=== PATIENT | male | born 1945 | race Caucasian/White ===

== ENCOUNTER 2016-10-19 16:29 | Emergency (ER) | payer MEDICARE, OTHER ==
[2016-10-19] MEDS ORDERED: DUONEB 0.5-3 MG/3 ml Neb IH ONE ×4 (16:38→17:30)
[2016-10-19] MEDS ORDERED: solu-MEDROL 125 MG IV ONE (16:38)
--- NOTE | 2016-10-19 16:44 | ERPHSYRPT ---
- History of Present Illness Time Seen by Provider: 10/19/16 16:35 Source: patient Exam Limitations: no limitations Physician History: 70 y/o male with history of HTN and COPD comes to the ER with a 3 day history of shortness of breath, wheezing, cough and congestion. Pt was just seen by his PCP and was supposed to start on ATBs and steroids but never filled the script. Pt has been using inhalers and neb treatments with no relief. Pt arrives in mild respiratory distress and an O2 sat of 92% on RA. Pt denies any fever, chills, chest pain, palpitations, palpitations, nausea, vomiting or diarrhea. Timing/Duration: day(s) Activities at Onset: none Severity of Dyspnea-Max: moderate Severity of Dyspnea-Current: moderate Possible Cause: occasional episodes Associated Symptoms: productive cough International travel in last 2 weeks: No Allergies/Adverse Reactions: Penicillins Allergy (Verified 10/19/16 16:42) Home Medications: Allopurinol 300 mg [Zyloprim 300 mg] 300 mg PO DAILY 10/06/15 [History] Aspirin [Aspirin EC] 81 mg PO DAILY 10/06/15 [History] Fluoxetine HCl 40 mg PO BID 10/06/15 [History] Furosemide 40 mg PO BID 10/06/15 [History] Metoprolol Tartrate 100 mg PO BID 10/06/15 [History] Spironolactone 25 mg [Aldactone 25 MG] 25 mg PO DAILY 10/06/15 [History] Tamsulosin HCl 0.4 mg [Flomax 0.4 MG] 0.4 mg PO DAILY 10/06/15 [History] Hx Tetanus, Diphtheria Vaccination/Date Given: No Hx Influenza Vaccination/Date Given: Yes Hx Pneumococcal Vaccination/Date Given: Yes - Review of Systems Constitutional: No Fever, No Chills Eyes: No Symptoms Ears, Nose, & Throat: No Symptoms Respiratory: Cough, Dyspnea, Dyspnea on Exertion (PIPER), Wheezing Cardiac: No Chest Pain, No Edema, No Syncope Abdominal/Gastrointestinal: No Abdominal Pain, No Nausea, No Vomiting, No Diarrhea Genitourinary Symptoms: No Dysuria Musculoskeletal: No Back Pain, No Neck Pain Skin: No Rash Neurological: No Dizziness, No Focal Weakness, No Sensory Changes Psychological: No Symptoms Endocrine: No Symptoms All Other Systems: Reviewed and Negative - Past Medical History Pertinent Past Medical History: Yes Neurological History: No Pertinent History ENT History: No Pertinent History Cardiac History: Congestive Heart Failure, Hypertension Respiratory History: No Pertinent History Endocrine Medical History: No Pertinent History Musculoskeletal History: Arthritis GI Medical History: No Pertinent History History: No Pertinent History Psycho-Social History: No Pertinent History Male Reproductive Disorders: No Pertinent History Other Medical History: IRON DEFICIENCY ANEMIA - Past Surgical History Past Surgical History: Yes Neuro Surgical History: No Pertinent History Cardiac: No Pertinent History Respiratory: No Pertinent History Gastrointestinal: No Pertinent History Genitourinary: No Pertinent History Musculoskeletal: No Pertinent History Male Surgical History: No Pertinent History Other Surgical History: RIGHT LOWER LEG TENDON REPAIR - DENTAL EXTRACTIONS - Social History Smoking Status: Never smoker Exposure to second hand smoke: No Drug Use: none - Nursing Vital Signs Nursing Vital Signs: Initial Vital Signs Pulse Rate 76 Respiratory Rate 28 Blood Pressure [Right Arm] 141/78 Pain Intensity 0 - Physical Exam General Appearance: mild distress, alert Eye Exam: PERRL/EOMI Neck Exam: normal inspection, supple Respiratory Exam: respiratory distress, wheezing Cardiovascular/Chest Exam: normal heart sounds, regular rate/rhythm Abdominal/Gastrointestinal Exam: soft, No tenderness, No distention, No mass Extremity Exam: non-tender, normal range of motion, normal inspection, no calf tenderness, no pedal edema Neurologic Exam: alert, oriented x 3, cooperative, cook helper pastry II-XII nml as tested, sensation nml, No motor deficits Skin Exam: normal color, warm, No dry - Course Nursing assessment & vital signs reviewed: Yes EKG Interpreted by Me: RATE, Sinus Rhythm, NORMAL AXIS (hr 76), NORMAL INTERVALS Ordered Tests: Active Orders 24 hr Category Date Time Status Eyewear Manufacturing Tech STAT Care 10/19/16 16:39 Active EKG-ER Only STAT Care 10/19/16 16:38 Active IV Insertion STAT Care 10/19/16 16:38 Active CBC W DIFF Stat Lab 10/19/16 16:39 Stop Req CMP Stat Lab 10/19/16 16:39 Stop Req TROPONIN Stat Lab 10/19/16 15:00 Completed Respiratory Nebulizer STAT RT 10/19/16 16:38 Completed Respiratory Nebulizer STAT RT 10/19/16 17:23 Ordered Medication Summary Discontinued Medications Generic Name Dose Route Start Last Admin Trade Name Freq PRN Reason Stop Dose Admin Albuterol/Ipratropium 3 ml 10/19/16 16:38 10/19/16 16:42 Duoneb 0.5-3 Mg/3 Ml Neb IH 10/19/16 16:39 3 ml STAT ONE Administration Albuterol/Ipratropium Confirm 10/19/16 16:38 Duoneb 0.5-3 Mg/3 Ml Neb Administered 10/19/16 16:39 Dose 3 ml IH .STK-MED ONE Methylprednisolone Sodium Succinate 125 mg 10/19/16 16:38 10/19/16 17:00 Solu-Medrol 125 Mg IV 10/19/16 16:39 125 mg STAT ONE Administration Methylprednisolone Sodium Succinate Confirm 10/19/16 17:00 Solu-Medrol 125 Mg Administered 10/19/16 17:01 Dose 125 mg .ROUTE .STK-MED ONE Lab/Rad Data: Laboratory Results 10/19/16 Range/Units 15:00 Troponin I 0.018 (0.000-0.056) ng/ml - Progress Progress: improved Air Movement: good Progress Note: 10/19/16 17:23 Pt feels better after receiving 2 duonebs. The CXR does not show any infiltrate. The labs are within normal limits. Repeat O2 sat is 94% on RA. Pt will be d/c home and was advised to fill the scripts of ATBs and steroids that were prescribed by his PCP 10/19/16 17:24 - Departure Time of Disposition: 17:25 Departure Disposition: Home Clinical Impression: COPD (chronic obstructive pulmonary disease) Condition: Stable Critical Care Time: Yes Critical Care Time(excluding separately billable procedures): 75-104 minutes Referrals: LUCIO BALL MD [Primary Care Provider] - Instructions: Chronic Obstructive Pulmonary Disease Additional Instructions: Return to the ER if you should have worsening shortness of breath, wheezing, chest congestion, cough, fever or chills. Start the antibiotics and steroids right away that were prescribed to you by your primary care doctor.
[2016-10-19] MEDS ORDERED: solu-MEDROL 125 MG ONE (17:00)
[2016-10-19 17:52] VITALS: BP 146/70; PULSE 76; O2SAT 93
== END 2016-10-19 17:51 | disposition home or self-care (01) ==
LOC: ED 16:29
DX: J44.9 Chronic obstructive pulmonary disease, unspecified (principal); R06.02 Shortness of breath; R06.2 Wheezing; R05 Cough; I50.9 Heart failure, unspecified; I10 Essential (primary) hypertension; D50.9 Iron deficiency anemia, unspecified
CPT/HCPCS: 36000; 36415; 84484; 93005; 93041; 94640; 96374; 99283; J2930

== ENCOUNTER 2017-11-07 08:58 | Inpatient (IN) | payer MEDICARE, OTHER ==
--- NOTE | 2017-11-07 09:08 | ERPHSYRPT ---
- History of Present Illness Time Seen by Provider: 11/07/17 09:00 Source: patient, EMS Exam Limitations: no limitations Physician History: The patient is a 71-year-old morbidly obese male brought in by ambulance from home where he complains of worsening cough and shortness of breath for several days. He states that he has been "fighting bronchitis for quite some time". 3 days ago he saw a doctor who gave him a steroid shot, steroid pills, and an antibiotic. He said last night he couldn't sleep lying flat or even in a chair. At one point several days ago his cough was productive but it no longer is. Several days ago he had a low-grade fever and not anymore. He received Solu-Medrol, Zofran, and a DuoNeb treatment in the ambulance. His past medical history significant for CHF, breathing problems, hypertension, gout, and prostate problems. Timing/Duration: day(s) (few) Activities at Onset: none Severity of Dyspnea-Max: moderate Severity of Dyspnea-Current: moderate Possible Cause: occasional episodes Modifying Factors: Improves With: coughing Associated Symptoms: cough, ankle swelling, productive cough Allergies/Adverse Reactions: Penicillins Allergy (Verified 10/19/16 16:42) Home Medications: Allopurinol 300 mg [Zyloprim 300 mg] 300 mg PO DAILY 10/06/15 [History] Aspirin [Aspirin EC] 81 mg PO DAILY 10/06/15 [History] Fluoxetine HCl 40 mg PO BID 10/06/15 [History] Furosemide 40 mg PO BID 10/06/15 [History] Metoprolol Tartrate 100 mg PO BID 10/06/15 [History] Spironolactone 25 mg [Aldactone 25 MG] 25 mg PO DAILY 10/06/15 [History] Tamsulosin HCl 0.4 mg [Flomax 0.4 MG] 0.4 mg PO DAILY 10/06/15 [History] Hx Tetanus, Diphtheria Vaccination/Date Given: No Hx Influenza Vaccination/Date Given: Yes Hx Pneumococcal Vaccination/Date Given: Yes - Review of Systems Constitutional: Fever Eyes: No Symptoms Ears, Nose, & Throat: No Symptoms Respiratory: Cough, Dyspnea Cardiac: No Chest Pain, No Edema, No Syncope Abdominal/Gastrointestinal: Nausea Genitourinary Symptoms: No Dysuria Musculoskeletal: No Back Pain, No Neck Pain Skin: No Rash Neurological: No Dizziness, No Focal Weakness, No Sensory Changes Psychological: No Symptoms Endocrine: No Symptoms Hematologic/Lymphatic: No Symptoms Immunological/Allergic: No Symptoms All Other Systems: Reviewed and Negative - Past Medical History Pertinent Past Medical History: Yes Neurological History: No Pertinent History ENT History: No Pertinent History Cardiac History: Congestive Heart Failure, Hypertension Respiratory History: No Pertinent History Endocrine Medical History: No Pertinent History Musculoskeletal History: Arthritis GI Medical History: No Pertinent History History: No Pertinent History Psycho-Social History: No Pertinent History Male Reproductive Disorders: No Pertinent History Other Medical History: IRON DEFICIENCY ANEMIA - Past Surgical History Past Surgical History: Yes Neuro Surgical History: No Pertinent History Cardiac: No Pertinent History Respiratory: No Pertinent History Gastrointestinal: No Pertinent History Genitourinary: No Pertinent History Musculoskeletal: No Pertinent History Male Surgical History: No Pertinent History Other Surgical History: RIGHT LOWER LEG TENDON REPAIR - DENTAL EXTRACTIONS - Social History Smoking Status: Never smoker Exposure to second hand smoke: No Drug Use: none Patient Lives Alone: Yes - Nursing Vital Signs Nursing Vital Signs: Initial Vital Signs Pulse Rate 108 H 11/07/17 09:01 Respiratory Rate 22 11/07/17 09:01 Blood Pressure 133/100 11/07/17 09:01 O2 Sat by Pulse Oximetry 97 11/07/17 09:01 Pain Scale Pain Intensity 0 - Physical Exam General Appearance: mild distress, obese Eye Exam: PERRL/EOMI Ears, Nose, Throat Exam: hearing grossly normal Neck Exam: normal inspection, supple Respiratory Exam: crackles/rales, rhonchi Cardiovascular/Chest Exam: normal heart sounds, regular rate/rhythm Abdominal/Gastrointestinal Exam: soft, No tenderness, No distention, No mass Rectal Exam: not done Extremity Exam: pedal edema Neurologic Exam: alert, oriented x 3, cooperative, air table operator II-XII nml as tested, sensation nml, No motor deficits Skin Exam: normal color, warm, No dry SpO2 Interpretation: normal - Radiology Exams Chest X-ray Interpretation: Teleradiologist Report, Negative (per Dr Doan.) Ordered Tests: Active Orders 24 hr Category Date Time Status Mosquito Sprayer STAT Care 11/07/17 09:13 Active IV Insertion STAT Care 11/07/17 09:12 Active Oxygen-ED Only NASAL CANNULA 2 lpm Care 11/07/17 09:12 Active CHEST 2 VIEWS (PA AND LAT) Stat Exams 11/07/17 09:13 Completed CBC W DIFF Stat Lab 11/07/17 09:12 Completed CMP Routine Lab 11/07/17 09:43 Completed Lactic Acid Stat Lab 11/07/17 09:29 Completed Manual Differential NC Stat Lab 11/07/17 09:12 Completed NT PRO BNP Routine Lab 11/07/17 09:43 Completed TROPONIN Q3H Lab 11/07/17 09:43 Completed TROPONIN Q3H Lab 11/07/17 12:39 Completed TROPONIN Q3H Lab 11/07/17 15:15 Ordered TROPONIN Q3H Lab 11/07/17 18:15 Ordered TROPONIN Q3H Lab 11/07/17 21:15 Ordered Medication Summary Discontinued Medications Generic Name Dose Route Start Last Admin Trade Name Freq PRN Reason Stop Dose Admin Furosemide 40 mg 11/07/17 09:12 11/07/17 09:19 Lasix 40 Mg/4 Ml IV 11/07/17 09:13 40 mg STAT ONE Administration Furosemide Confirm 11/07/17 09:16 Lasix 40 Mg/4 Ml Administered 11/07/17 09:17 Dose 40 mg .ROUTE .Tjobs Recruit ONE Lab/Rad Data: Laboratory Result Diagrams 11/07/17 09:12 11/07/17 09:43 Laboratory Results 11/07/17 11/07/17 11/07/17 Range/Units 12:39 09:43 09:30 WBC (4.0-10.5) K/mm3 RBC (4.1-5.6) M/mm3 Hgb (12.5-18.0) gm/dl Hct (42-50) % MCV (78-100) fl MCH (26-32) pg MCHC (32-36) g/dl RDW (11.5-14.0) % Plt Count (150-450) K/mm3 MPV (6-9.5) fl Segmented Neutrophils (36.-66.) % Lymphocytes (Manual) (24-44) % Monocytes (Manual) (0.0-12.0) % Differential Comment Platelet Estimate (NORMAL) Hypochromasia Poikilocytosis Anisocytosis Sodium 139 (136-145) mEq/L Potassium 4.4 (3.5-5.1) mEq/L Chloride 100 (98-107) mEq/L Carbon Dioxide 31.6 (21-32) mEq/L Anion Gap 11.3 (5-15) MEQ/L BUN 26 H (9-20) mg/dL Creatinine 1.49 H (0.55-1.30) mg/dl Estimated GFR 50 ML/MIN Glucose 200 H (70-110) MG/DL Lactic Acid (0.4-2.0) Calcium 8.8 (8.5-10.1) mg/dL Total Bilirubin 0.40 (0.2-1.0) mg/dL AST 34 (15-37) U/L ALT 26 (12-78) U/L Alkaline Phosphatase 63 (46-116) U/L Troponin I < 0.017 < 0.017 (0.000-0.056) ng/ml NT-Pro-B Natriuret Pep 269 H (0-125) pg/ml Serum Total Protein 7.4 (6.4-8.2) gm/dL Albumin 4.1 (3.4-5.0) g/dL Influenza Type A Ag POSITIVE (NEGATIVE) Influenza Type B Ag NEGATIVE (NEGATIVE) RSV (PCR) NEGATIVE (Negative) 11/07/17 11/07/17 Range/Units 09:29 09:12 WBC 10.2 (4.0-10.5) K/mm3 RBC 5.72 H (4.1-5.6) M/mm3 Hgb 11.6 L (12.5-18.0) gm/dl Hct 40.3 L (42-50) % MCV 70.5 L (78-100) fl MCH 20.2 L (26-32) pg MCHC 28.8 L (32-36) g/dl RDW 21.2 H (11.5-14.0) % Plt Count 240 (150-450) K/mm3 MPV 9.8 H (6-9.5) fl Segmented Neutrophils 79 H (36.-66.) % Lymphocytes (Manual) 15 L (24-44) % Monocytes (Manual) 6 (0.0-12.0) % Differential Comment ABNORMAL Platelet Estimate NORMAL (NORMAL) Hypochromasia 2+ Poikilocytosis 1+ Anisocytosis 2+ Sodium (136-145) mEq/L Potassium (3.5-5.1) mEq/L Chloride (98-107) mEq/L Carbon Dioxide (21-32) mEq/L Anion Gap (5-15) MEQ/L BUN (9-20) mg/dL Creatinine (0.55-1.30) mg/dl Estimated GFR ML/MIN Glucose (70-110) MG/DL Lactic Acid 2.3 H (0.4-2.0) Calcium (8.5-10.1) mg/dL Total Bilirubin (0.2-1.0) mg/dL AST (15-37) U/L ALT (12-78) U/L Alkaline Phosphatase (46-116) U/L Troponin I (0.000-0.056) ng/ml NT-Pro-B Natriuret Pep (0-125) pg/ml Serum Total Protein (6.4-8.2) gm/dL Albumin (3.4-5.0) g/dL Influenza Type A Ag (NEGATIVE) Influenza Type B Ag (NEGATIVE) RSV (PCR) (Negative) - Progress Progress: improved Air Movement: good Blood Culture(s) Obtained: No Antibiotics given: No Discussed with : Fabien Will see patient in: hospital (full admit) Counseled pt/family regarding: lab results, diagnosis, rad results - Departure Time of Disposition: 13:48 Departure Disposition: In-patient Admission (per Dr Conn) Clinical Impression: Congestive heart failure, Influenza A Condition: Good Critical Care Time: No Referrals: MARYELLEN HODGES [Primary Care Provider] - Instructions: Heart Failure
[2017-11-07] MEDS ORDERED: Lasix 40 MG/4 ML IV ONE (09:12)
[2017-11-07] MEDS ORDERED: Lasix 40 MG/4 ML ONE (09:16)
[2017-11-07 09:32] LABS: Lactic Acid 2.3 (0.4-2.0)
[2017-11-07 09:40] LABS: Hematocrit 40.3 % (42-50); Hemoglobin 11.6 gm/dl (12.5-18.0); Mean Cell Volume 70.5 fl (78-100); Mean Corpuscular Hgb Concent. 28.8 g/dl (32-36); Mean Platelet Volume 9.8 fl (6-9.5); Platelet Count 240 K/mm3 (150-450); Red Blood Count 5.72 M/mm3 (4.1-5.6); Red Cell Distribution Width 21.2 % (11.5-14.0); White Blood Count 10.2 K/mm3 (4.0-10.5)
[2017-11-07 09:42] LABS: Mean Corpuscular Hemoglobin 20.2 pg (26-32)
--- NOTE | 2017-11-07 09:47 | XRAY ---
Indication: Short of breath. Dyspnea. Comparison: October 19, 2016. PA/lateral chest unchanged again demonstrating right hemidiaphragm elevation with adjacent atelectasis/scarring. Remaining heart and lungs unremarkable. No new abnormalities.
[2017-11-07 10:17] LABS: ALBUMIN 4.1 g/dL (3.4-5.0); ALKALINE PHOSPHATASE 63 U/L (46-116); ANION GAP 11.3 MEQ/L (5-15); BLOOD UREA NITROGEN 26 mg/dL (9-20); CHLORIDE 100 mEq/L (98-107); Calcium 8.8 mg/dL (8.5-10.1); Carbon Dioxide 31.6 mEq/L (21-32); Creatinine 1 1.49 mg/dl (0.55-1.30); EST GLOMERULAR FILTRATION RATE 50 ML/MIN; Glucose 200 MG/DL (70-110); NT PRO BNP 269 pg/ml (0-125); Potassium 4.4 mEq/L (3.5-5.1); SGOT/AST 34 U/L (15-37); SGPT/ALT 26 U/L (12-78); SODIUM 139 mEq/L (136-145); TROPONIN < 0.017 ng/ml (0.000-0.056); Total Protein 7.4 gm/dL (6.4-8.2)
[2017-11-07 10:32] LABS: INFLUENZA A POSITIVE (NEGATIVE); INFLUENZA B NEGATIVE (NEGATIVE); RESPIRATORY SYNCTIAL VIRUS NEGATIVE (Negative)
[2017-11-07 10:50] LABS: ANISOCYTOSIS 2+; Hypochromia 2+; Lymphocytes 15 % (24-44); Monocyte 6 % (0.0-12.0); Neutrophils 79 % (36.-66.); Platelet Estimate NORMAL (NORMAL); Poikilocytosis 1+; Total Cells Counted 100
[2017-11-07] MEDS ORDERED: PROVENTIL 2.5 MG/3 ML NEB IH ONE (15:27)
[2017-11-07] MEDS: PROVENTIL 2.5 MG/3 ML NEB IH SCH ×3 (15:30→23:10)
[2017-11-07] MEDS: Lasix 40 MG/4 ML IV SCH (16:58)
[2017-11-07] MEDS ORDERED: DUONEB 0.5-3 MG/3 ml Neb IH PRN (17:14)
[2017-11-07] MEDS ORDERED: Ventolin Hfa MDI IH PRN (17:16)
--- NOTE | 2017-11-07 17:20 | PCM.HP ---
History of Present Illness - Chief Complaint Chief Complaint: CHF History of Present Illness: is a 71 year old male who presented to the ER today with a week history of cough, weakness and worsening dyspnea. He was unable to lie down last night to sleep, has a history of CHF. relays PND and orthopnea, cough is productive and has had chills. was on po antibiotics and steroids for the last 3 days with worsening of symptoms. He reports compliance with his home diuretics. - Review of Systems Constitutional: No Fever, No Chills Respiratory: Cough, Short Of Breath Cardiac: No Chest Pain, No Edema, No Syncope Abdominal/Gastrointestinal: No Abdominal Pain, No Nausea, No Vomiting, No Diarrhea Skin: No Rash All Other Systems: Reviewed and Negative Medications & Allergies Home Medications: Home Medication List Aspirin [Aspirin EC] 81 mg PO DAILY 10/06/15 [History Confirmed 11/07/17] Furosemide 40 mg PO BID 10/06/15 [History Confirmed 11/07/17] Albuterol Sulfate [Albuterol Sulfate Hfa] 2 puff IH Q4-6HPRN PRN #1 [email or web address] 10/07/15 [Rx Confirmed 11/07/17] Carvedilol [Carvedilol] 6.25 mg PO BID 11/07/17 [History Confirmed 11/07/17] Doxycycline Monohydrate 100 mg PO BID 11/07/17 [History Confirmed 11/07/17] Fluticasone/Vilanterol [Breo Ellipta 100-25 Mcg INH] 1 puff IH DAILY 11/07/17 [ History Confirmed 11/07/17] Losartan/Hydrochlorothiazide [Losartan-Hctz 100-12.5 mg Tab] 1 tab PO DAILY [History Confirmed 11/07/17] Naproxen Sodium 220 mg [Aleve 220 MG] 2 mg PO BID PRN PRN 11/07/17 [ History Confirmed 11/07/17] Prednisone 20 mg [Deltasone 20 mg] 20 mg PO UD 11/07/17 [History Confirmed 11/07/17] Allergies/Adverse Reactions: Allergies Allergy/AdvReac Type Severity Reaction Status Date / Time Penicillins Allergy Verified 10/19/16 16:42 - Past Medical History Past Medical History: Yes Neurological History: TIA ENT History: No Pertinent History Cardiac History: Congestive Heart Failure, Hypertension Respiratory History: Bronchitis, CHF, COPD, Pneumonia Endocrine Medical History: No Pertinent History Musculoskelatal History: Arthritis GI Medical History: No Pertinent History History: No Pertinent History Pyscho-Social History: No Pertinent History Male Reproductive Disorders: No Pertinent History Comment: IRON DEFICIENCY ANEMIA - Past Surgical History Past Surgical History: Yes Neuro Surgical History: No Pertinent History Cardiac History: Cardiac Catheterization Respiratory Surgery: No Pertinent History GI Surgical History: No Pertinent History Genitourinary Surgical Hx: No Pertinent History Musculskeletal Surgical Hx: No Pertinent History Male Surgical History: No Pertinent History Other Surgical History: RIGHT LOWER LEG TENDON REPAIR - DENTAL EXTRACTIONS - Social History Smoking Status: Never smoker Exposure to second hand smoke: Yes Alcohol: Rarely Drug Use: none - Physical Exam Vital Signs: Vital Signs - 24 hr Temp Pulse Resp BP Pulse Ox 11/07/17 16:40 98.6 F 76 18 122/68 94 L 11/07/17 15:50 98.4 F 78 18 126/72 94 L 11/07/17 15:44 94 H 20 93 L 11/07/17 15:40 98.4 F 76 18 126/72 94 L 11/07/17 15:36 97.9 F 94 H 20 142/79 93 L 11/07/17 15:25 97.9 F 99 H 22 142/79 90 L 11/07/17 15:22 97.9 F 143/79 11/07/17 14:50 98.3 F 78 18 128/71 93 L 11/07/17 14:00 93 H 18 138/103 93 L 11/07/17 12:13 96 H 22 124/102 96 11/07/17 11:47 102 H 22 136/99 94 L 11/07/17 10:20 101 H 20 131/95 93 L 11/07/17 09:10 99.6 F 11/07/17 09:07 98 11/07/17 09:01 108 H 22 133/100 97 Oxygen-Last 24 hours O2 Percentage 2 Liters = 28% O2 Percentage 2 Liters = 28% O2 Percentage 2 Liters = 28% O2 Percentage 2 Liters = 28% O2 Percentage 2 Liters = 28% O2 Percentage 2 Liters = 28% O2 Percentage 2 Liters = 28% General Appearance: obese Neurologic Exam: alert, oriented x 3, cooperative, normal mood/affect, nml cerebellar function, nml station & gait, sensation nml, No motor deficits Respiratory Exam: crackles/rales, wheezing Cardiovascular Exam: regular rate/rhythm, normal heart sounds, normal peripheral pulses Gastrointestinal/Abdomen Exam: soft, normal bowel sounds, No tenderness, No mass Extremity Exam: normal inspection, normal range of motion, pelvis stable Skin Exam: normal color, warm, dry, No rash Results - Other Procedures and Tests Respiratory Therapy 11/07/17 15:00 Respiratory Nebulizer Q4H 11/08/17 07:00 Respiratory MDI UD Assessment/Plan (1) CHF (congestive heart failure) Current Visit: Yes Status: Acute Assessment & Plan: will continue to gently diurese Code(s): I50.9 - HEART FAILURE, UNSPECIFIED (2) Influenza A Current Visit: Yes Status: Acute Assessment & Plan: on po tamiflu, supportive care Code(s): J10.1 - FLU DUE TO OTH IDENT INFLUENZA VIRUS W OTH RESP MANIFEST (3) Asthmatic bronchitis Current Visit: No Status: Acute Assessment & Plan: po levaquin, duonebs and IV solumedrol Code(s): J45.909 - UNSPECIFIED ASTHMA, UNCOMPLICATED
[2017-11-07] MEDS ORDERED: PROVENTIL COMMON CANISTER IH PRN (17:21)
[2017-11-07] MEDS: Tamiflu 75MG Capsule PO SCH (18:05)
[2017-11-07] MEDS: solu-MEDROL 125 MG IV SCH ×2 (18:05→22:33)
[2017-11-07] MEDS: ENOXAPARIN SODIUM SQ SCH (18:05)
[2017-11-07] MEDS: Levofloxacin 500 MG Tablet PO SCH (18:05)
[2017-11-07] MEDS: Coreg 6.25 MG PO SCH (22:37)
[2017-11-08] MEDS: PROVENTIL 2.5 MG/3 ML NEB IH SCH ×6 (03:13→23:43)
[2017-11-08 05:59] LABS: Hematocrit 37.7 % (42-50); Hemoglobin 10.7 gm/dl (12.5-18.0); Mean Corpuscular Hgb Concent. 28.4 g/dl (32-36); Platelet Count 235 K/mm3 (150-450); Red Blood Count 5.31 M/mm3 (4.1-5.6); Red Cell Distribution Width 20.8 % (11.5-14.0); White Blood Count 7.1 K/mm3 (4.0-10.5)
[2017-11-08 06:06] LABS: Mean Corpuscular Hemoglobin 20.1 pg (26-32)
[2017-11-08 06:22] LABS: ANION GAP 11.8 MEQ/L (5-15); Calcium 8.9 mg/dL (8.5-10.1); Carbon Dioxide 33.9 mEq/L (21-32); Creatinine 1 1.57 mg/dl (0.55-1.30); Potassium 4.9 mEq/L (3.5-5.1)
[2017-11-08] MEDS: solu-MEDROL 125 MG IV SCH ×3 (06:27→21:30)
[2017-11-08] MEDS: PATIENT OWN MEDICATION IH SCH (06:49)
[2017-11-08] MEDS: Cozaar 50 MG PO SCH (08:20)
[2017-11-08] MEDS: ECOTRIN 81 MG PO SCH (08:21)
[2017-11-08] MEDS: Coreg 6.25 MG PO SCH ×2 (08:21→21:30)
[2017-11-08] MEDS: hydroDIURIL 25 MG PO SCH (08:21)
[2017-11-08] MEDS: Tamiflu 75MG Capsule PO SCH ×2 (08:22→21:30)
[2017-11-08] MEDS: ENOXAPARIN SODIUM SQ SCH (08:22)
[2017-11-08] MEDS: Levofloxacin 500 MG Tablet PO SCH (08:22)
[2017-11-08] MEDS: Lasix 40 MG/4 ML IV SCH ×2 (08:24→08:27)
--- NOTE | 2017-11-08 08:25 | PCM.NOTE ---
Date and Time: 11/08/17820 Subjective Assessment: patient reports he is feeling a little better today, breathing is less labored. still has harsh nonproductive cough that makes his chest sore from coughing so much Objective Exam General Appearance: obese Skin Exam: normal color, warm, dry Respiratory Exam: diminished breath sounds Cardiovascular Exam: regular rate/rhythm, normal heart sounds Gastrointestinal/Abdomen Exam: soft, No tenderness, No mass Extremity Exam: pedal edema, swelling (chronic) OBJECTIVE DATA Vital Signs: Vital Signs - 24 hr Temp Pulse Resp BP Pulse Ox 11/08/17 08:00 98.6 F 86 24 123/66 92 L 11/08/17 06:55 87 22 92 L 11/08/17 03:45 98.1 F 83 21 120/76 93 L 11/08/17 03:16 83 20 93 L 11/07/17 23:47 98.6 F 94 H 22 106/72 96 11/07/17 23:17 96 H 22 96 11/07/17 20:00 99.2 F 97 H 19 110/67 94 L 11/07/17 19:28 94 H 18 94 L 11/07/17 17:40 98.0 F 99 H 22 99 11/07/17 16:50 98.0 F 96 H 22 144/76 90 L 18 16:40 98.6 F 76 18 122/68 94 L 11/07/17 15:50 98.4 F 78 18 126/72 94 L 11/07/17 15:44 94 H 20 93 L 18 15:40 98.4 F 76 18 126/72 94 L 18 15:36 97.9 F 94 H 20 142/79 93 L 18 15:25 97.9 F 99 H 22 142/79 90 L 18 15:22 97.9 F 143/79 11/07/17 14:50 98.3 F 78 18 128/71 93 L 11/07/17 14:00 93 H 18 138/103 93 L 11/07/17 12:13 96 H 22 124/102 96 11/07/17 11:47 102 H 22 136/99 94 L 11/07/17 10:20 101 H 20 131/95 93 L 11/07/17 09:10 99.6 F 11/07/17 09:07 98 11/07/17 09:01 108 H 22 133/100 97 Oxygen-Last 24 hours O2 Percentage 2 Liters = 28% O2 Percentage 2 Liters = 28% O2 Percentage 2 Liters = 28% O2 Percentage 2 Liters = 28% O2 Percentage 2 Liters = 28% O2 Percentage 2 Liters = 28% O2 Percentage 2 Liters = 28% O2 Percentage 2 Liters = 28% O2 Percentage 2 Liters = 28% O2 Percentage 2 Liters = 28% O2 Percentage 2 Liters = 28% O2 Percentage 2 Liters = 28% Pain Assessment - Last Documented Pain Intensity 0 Pain Scale Used 0-10 Pain Scale Intake and Output: Intake & Output 11/05/17 11/06/17 11/07/17 11/08/17 11:59 11:59 11:59 11:59 Intake Total 820 Output Total 1400 Balance -580 Weight 134.9 kg Lab Results: Accuchecks Date 11/07/17 Time 22:00 Accucheck Value: 178 Lab Results-Last 24 Hours 11/08/17 11/08/17 Range/Units 05:43 05:43 WBC 7.1 (4.0-10.5) K/mm3 RBC 5.31 (4.1-5.6) M/mm3 Hgb 10.7 L (12.5-18.0) gm/dl Hct 37.7 L (42-50) % MCV 71.0 L (78-100) fl MCH 20.1 L (26-32) pg MCHC 28.4 L (32-36) g/dl RDW 20.8 H (11.5-14.0) % Plt Count 235 (150-450) K/mm3 MPV 10.0 H (6-9.5) fl Sodium 138 (136-145) mEq/L Potassium 4.9 (3.5-5.1) mEq/L Chloride 97 L (98-107) mEq/L Carbon Dioxide 33.9 H (21-32) mEq/L Anion Gap 11.8 (5-15) MEQ/L BUN 39 H (9-20) mg/dL Creatinine 1.57 H (0.55-1.30) mg/dl Estimated GFR 47 ML/MIN Glucose 189 H (70-110) MG/DL Calcium 8.9 (8.5-10.1) mg/dL NT-Pro-B Natriuret Pep 263 H (0-125) pg/ml Slides for Path Review Assessment/Plan (1) CHF (congestive heart failure) Current Visit: Yes Status: Acute Assessment & Plan: improved, has slight increase in Bun/Cr today so cutting back lasix from 40mg bid to once daily Code(s): I50.9 - HEART FAILURE, UNSPECIFIED (2) Influenza A Current Visit: Yes Status: Acute Assessment & Plan: continue tamiflu Code(s): J10.1 - FLU DUE TO OTH IDENT INFLUENZA VIRUS W OTH RESP MANIFEST (3) Asthmatic bronchitis Current Visit: No Status: Acute Assessment & Plan: on Levaquin, solu-medrol, duonebs Code(s): J45.909 - UNSPECIFIED ASTHMA, UNCOMPLICATED
--- NOTE | 2017-11-08 09:17 | XRAY ---
Indication: Short of breath. Comparison: November 07, 2017. PA/lateral chest demonstrates stable right hemidiaphragm elevation with adjacent atelectasis/scarring and new left base infiltrate versus atelectasis. No consolidation or large effusion. Heart and mediastinal structures stable and within normal limits.
[2017-11-08] MEDS ORDERED: HYDROCHLOROTHIAZIDE PO SCH (10:00)
[2017-11-08] MEDS ORDERED: LOSARTAN PO SCH (10:00)
[2017-11-09] MEDS: PROVENTIL 2.5 MG/3 ML NEB IH SCH ×5 (03:33→20:21)
[2017-11-09] MEDS: solu-MEDROL 125 MG IV SCH (05:36)
[2017-11-09 06:18] LABS: Basophil (Absolute #) 0 (0-0.4); Eosinophil (Absolute #) 0 (0-0.5); Granulocyte Absolute (ANC) 7.83 (1.4-6.9); Hematocrit 38.2 % (42-50); Hemoglobin 11.1 gm/dl (12.5-18.0); Lymphocytes % 7.6 % (24.0-44.0); Mean Cell Volume 69.8 fl (78-100); Mean Corpuscular Hemoglobin 20.2 pg (26-32); Mean Corpuscular Hgb Concent. 29.1 g/dl (32-36); Mean Platelet Volume 9.8 fl (6-9.5); Monocyte (Absolute #) 0.68 (0.0-1.3); Monocytes % 7.4 % (0.0-12.0); Platelet Count 247 K/mm3 (150-450); Red Blood Count 5.47 M/mm3 (4.1-5.6); Red Cell Distribution Width 20.6 % (11.5-14.0); White Blood Count 9.2 K/mm3 (4.0-10.5)
[2017-11-09] MEDS: PATIENT OWN MEDICATION IH SCH (06:20)
[2017-11-09 06:49] LABS: ALBUMIN 3.7 g/dL (3.4-5.0); ANION GAP 10.6 MEQ/L (5-15); BILIRUBIN,TOTAL 0.4 mg/dL (0.2-1.0); Calcium 9.2 mg/dL (8.5-10.1); Carbon Dioxide 33.7 mEq/L (21-32); Creatinine 1 1.4 mg/dl (0.55-1.30); Potassium 4.3 mEq/L (3.5-5.1)
[2017-11-09] MEDS: ENOXAPARIN SODIUM SQ SCH (08:37)
[2017-11-09] MEDS: Coreg 6.25 MG PO SCH ×2 (08:37→21:26)
[2017-11-09] MEDS: ECOTRIN 81 MG PO SCH (08:37)
[2017-11-09] MEDS: hydroDIURIL 25 MG PO SCH (08:37)
[2017-11-09] MEDS: Levofloxacin 500 MG Tablet PO SCH (08:37)
[2017-11-09] MEDS: Cozaar 50 MG PO SCH (08:38)
[2017-11-09] MEDS: Lasix 40 MG/4 ML IV SCH (08:38)
[2017-11-09] MEDS: Tamiflu 75MG Capsule PO SCH ×2 (08:38→21:26)
[2017-11-09] MEDS: Colace 100 MG PO SCH (08:40)
[2017-11-09 09:36] LABS: BAND 5 % (0.0-2.0); Lymphocytes 12 % (24-44); Monocyte 6 % (0.0-12.0); Neutrophils 77 % (36.-66.); Platelet Estimate NORMAL (NORMAL); Total Cells Counted 100
[2017-11-09 09:37] LABS: Microcytosis 3+
[2017-11-09 09:38] LABS: Hypochromia 2+; Polychromasia 2+
[2017-11-09] MEDS: DELTASONE 20 MG PO SCH (12:52)
[2017-11-09] MEDS: NovoLOG Insulin SQ PRN ×3 (12:52→21:26)
--- NOTE | 2017-11-09 13:16 | PCM.NOTE ---
Date and Time: 11/09/17 1311 Subjective Assessment: feeling better today but still short of breath with laying down or walking appetite improved coughing less no chest pain Objective Exam General Appearance: no apparent distress, obese Neurologic Exam: alert, oriented x 3, cooperative Skin Exam: warm, dry, No rash Eye Exam: No scleral icterus Ears, Nose, Throat Exam: dry mucous membranes Neck Exam: non-tender, supple Respiratory Exam: normal breath sounds, lungs clear Cardiovascular Exam: regular rate/rhythm, normal heart sounds, No edema Gastrointestinal/Abdomen Exam: soft, normal bowel sounds, No tenderness Extremity Exam: No calf tenderness, No pedal edema OBJECTIVE DATA Vital Signs: Vital Signs - 24 hr Temp Pulse Resp BP Pulse Ox 11/09/17 11:30 68 18 113/83 91 L 11/09/17 10:12 71 20 90 L 11/09/17 07:42 97.4 F 68 22 108/55 95 11/09/17 07:00 69 18 94 L 11/09/17 04:00 97.7 F 68 22 104/61 94 L 11/09/17 03:33 68 22 94 L 11/09/17 00:00 98.9 F 74 24 128/69 92 L 11/08/17 23:43 74 24 92 L 11/08/17 20:00 99.1 F 82 24 127/68 92 L 11/08/17 19:32 88 L 11/08/17 19:14 87 20 88 L 11/08/17 16:00 99.0 F 104 H 20 129/92 91 L 11/08/17 14:47 89 20 92 L Oxygen-Last 24 hours O2 Percentage 2 Liters = 28% O2 Percentage 3 Liters = 32% O2 Percentage 3 Liters = 32% Pain Assessment - Last Documented Pain Intensity 0 Pain Scale Used 0-10 Pain Scale Intake and Output: Intake & Output 11/07/17 11/08/17 11/09/17 11/10/17 11:59 11:59 11:59 11:59 Intake Total 820 1130 360 Output Total 1400 3450 400 Balance -580 -2320 -40 Weight 134.9 kg 135 kg Lab Results: Accuchecks Date 11/09/17 Date 11/09/17 Date 11/08/17 Time 11:30 Time 07:30 Time 22:00 Accucheck Value: 262 Accucheck Value: 188 Accucheck Value: 212 Accucheck Value: 172 Lab Results-Last 24 Hours 11/09/17 11/09/17 Range/Units 05:30 05:30 WBC 9.2 (4.0-10.5) K/mm3 RBC 5.47 (4.1-5.6) M/mm3 Hgb 11.1 L (12.5-18.0) gm/dl Hct 38.2 L (42-50) % MCV 69.8 L (78-100) fl MCH 20.2 L (26-32) pg MCHC 29.1 L (32-36) g/dl RDW 20.6 H (11.5-14.0) % Plt Count 247 (150-450) K/mm3 MPV 9.8 H (6-9.5) fl Gran % 85.0 H (36.0-66.0) % Lymphocytes % 7.6 L (24.0-44.0) % Monocytes % 7.4 (0.0-12.0) % Eosinophils % 0.0 (0.00-5.0) % Basophils % 0.0 (0.0-0.4) % Segmented Neutrophils 77 H (36.-66.) % Band Neutrophils 5 H (0.0-2.0) % Lymphocytes (Manual) 12 L (24-44) % Monocytes (Manual) 6 (0.0-12.0) % Basophils # 0 (0-0.4) Differential Comment ABNORMAL Platelet Estimate NORMAL (NORMAL) Polychromasia 2+ Hypochromasia 2+ Microcytosis 3+ Sodium 136 (136-145) mEq/L Potassium 4.3 (3.5-5.1) mEq/L Chloride 96 L (98-107) mEq/L Carbon Dioxide 33.7 H (21-32) mEq/L Anion Gap 10.6 (5-15) MEQ/L BUN 43 H (9-20) mg/dL Creatinine 1.40 H (0.55-1.30) mg/dl Estimated GFR 53 ML/MIN Glucose 206 H (70-110) MG/DL Calcium 9.2 (8.5-10.1) mg/dL Magnesium 2.4 (1.8-2.4) mg/dL Total Bilirubin 0.40 (0.2-1.0) mg/dL AST 25 (15-37) U/L ALT 26 (12-78) U/L Alkaline Phosphatase 54 (46-116) U/L Serum Total Protein 7.0 (6.4-8.2) gm/dL Albumin 3.7 (3.4-5.0) g/dL Radiology Exams: Radiology Procedures Category Date Time Status ECHO W/2D AND DOPPLER [US] Routine Exams 11/08/17 14:00 Taken Multi-Disciplinary Progress Notes: Multi-Disciplinary Progress Notes 11/08/17 22:04 Respiratory Note by LeslySkyler WILL NOT DO OVERNIGHT PULSE OX STUDY TONIGHT PT SATS WERE 88% ON RA BEFORE HIS 1900 TX. THIS WAS WHILE SITTING UP IN A CHAIR. Initialized on 11/08/17 22:04 - END OF NOTE Assessment/Plan (1) Influenza A Current Visit: Yes Status: Acute Assessment & Plan: continue tamiflu wean steroids continue levaquin for pneumonia is improving continue nebs hopeful for home tomorrow he has home O2 official echo results pending. Code(s): J10.1 - FLU DUE TO OTH IDENT INFLUENZA VIRUS W OTH RESP MANIFEST (2) Pneumonia Current Visit: Yes Status: Acute Qualifiers: Laterality: left Lung location: lower lobe of lung Code(s): J18.9 - PNEUMONIA, UNSPECIFIED ORGANISM (3) COPD (chronic obstructive pulmonary disease) Current Visit: Yes Status: Chronic Qualifiers: COPD type: chronic bronchitis Chronic bronchitis type: simple Qualified Code(s): J41.0 - Simple chronic bronchitis (4) Acute on chronic respiratory failure with hypoxemia Current Visit: Yes Status: Acute Code(s): J96.21 - ACUTE AND CHRONIC RESPIRATORY FAILURE WITH HYPOXIA (5) Diabetes mellitus Current Visit: Yes Status: Acute Code(s): E11.9 - TYPE 2 DIABETES MELLITUS WITHOUT COMPLICATIONS (6) Essential hypertension Current Visit: Yes Status: Acute Code(s): I10 - ESSENTIAL (PRIMARY) HYPERTENSION (7) Microcytic anemia Current Visit: Yes Status: Acute Assessment & Plan: need outpatient f/u to ensure colonoscopy up to date Code(s): D50.9 - IRON DEFICIENCY ANEMIA, UNSPECIFIED (8) Acute diastolic heart failure Current Visit: Yes Status: Acute Code(s): I50.31 - ACUTE DIASTOLIC ( CONGESTIVE) HEART FAILURE
[2017-11-10] MEDS: PROVENTIL 2.5 MG/3 ML NEB IH SCH ×4 (00:10→10:43)
[2017-11-10] MEDS: ECOTRIN 81 MG PO SCH (08:16)
[2017-11-10] MEDS: Lasix 40 MG/4 ML IV SCH (08:16)
[2017-11-10] MEDS: ENOXAPARIN SODIUM SQ SCH (08:16)
[2017-11-10] MEDS: Colace 100 MG PO SCH (08:17)
[2017-11-10] MEDS: Tamiflu 75MG Capsule PO SCH (08:17)
[2017-11-10] MEDS: Levofloxacin 500 MG Tablet PO SCH (08:17)
[2017-11-10] MEDS: hydroDIURIL 25 MG PO SCH (08:17)
[2017-11-10] MEDS: Coreg 6.25 MG PO SCH (08:17)
[2017-11-10] MEDS: Cozaar 50 MG PO SCH (08:17)
[2017-11-10] MEDS: DELTASONE 20 MG PO SCH (08:17)
[2017-11-10] MEDS: NovoLOG Insulin SQ PRN (08:18)
--- NOTE | 2017-11-10 08:20 | PCM.DS ---
Discharge Summary Date of Admission: 11/07/17 15:23 Admitting Physician: LUCIO BALL Primary Care Provider: MARYELLEN HODGES Allergies Allergies Penicillins Allergy (Verified 10/19/16 16:42) Hospital Summary - Hospital Course Hospital Course: patient was admitted with flu, cough and shortness of breath and chf exacerbation. - Vitals & Intake/Output Vital Signs: Vital Signs Temperature 97.8 F 11/10/17 07:28 Pulse Rate 77 11/10/17 07:28 Respiratory Rate 22 11/10/17 07:28 Blood Pressure 135/80 11/10/17 07:28 O2 Sat by Pulse Oximetry 90 L 11/10/17 07:28 Oxygen-Last Documented O2 Percentage 2 Liters = 28% Intake & Output: Intake & Output 11/07/17 11/08/17 11/09/17 11/10/17 11:59 11:59 11:59 11:59 Intake Total 820 1130 1320 Output Total 1400 3450 2250 Balance -119 -9198 -930 Weight 134.9 kg 135 kg 136 kg - Lab Result Diagrams: 11/09/17 05:30 11/09/17 05:30 Lab Results-Last 24 Hrs: Accuchecks Date 11/10/17 Date 11/09/17 Date 11/09/17 Time 07:29 Time 16:30 Time 11:30 Accucheck Value: 151 Accucheck Value: 232 Accucheck Value: 197 Accucheck Value: 262 Lab Results-Last 24 Hours 11/09/17 Range/Units 05:30 Segmented Neutrophils 77 H (36.-66.) % Band Neutrophils 5 H (0.0-2.0) % Lymphocytes (Manual) 12 L (24-44) % Monocytes (Manual) 6 (0.0-12.0) % Differential Comment ABNORMAL Platelet Estimate NORMAL (NORMAL) Polychromasia 2+ Hypochromasia 2+ Microcytosis 3+ Micro Results-Entire Visit: Accuchecks Date 11/10/17 Date 11/09/17 Date 11/09/17 Time 07:29 Time 16:30 Time 11:30 Accucheck Value: 151 Accucheck Value: 232 Accucheck Value: 197 Accucheck Value: 262 - Radiology Exams Ordered Rad Exams-Entire Visit: Radiology Procedures Category Date Time Status ECHO W/2D AND DOPPLER [US] Routine Exams 11/08/17 14:00 Taken - Procedures and Test Procedures and Tests throughout Hospitalization: Therapy Orders & Screens 11/07/17 15:00 Respiratory Nebulizer Q4H Comment: ALBUTEROL Q4 Diagnosis: CHF 11/07/17 16:36 RT Screen per Nursing Assess ONCE Comment: Protocol Order Physician Instructions: Greater than 3 points order RT Admission Screen Reason For Exam: Triggered on Admission Diagnosis: CHF Diagnosis: CHF Pneumonia: No Home O2: Yes Asthma: No CHF: Yes Home CPAP/BIPAP: Yes Home Nebs/MDI: Yes Total Points: 18 11/08/17 07:00 Respiratory MDI UD Comment: BREO DAILY Diagnosis: CHF Discharge Exam General Appearance: no apparent distress, alert Skin Exam: normal color, warm, dry Eye Exam: PERRL, EOMI, eyes nml inspection Respiratory Exam: normal breath sounds, lungs clear, No respiratory distress Cardiovascular Exam: regular rate/rhythm, normal heart sounds Gastrointestinal/Abdomen Exam: soft, No tenderness, No mass Extremity Exam: normal inspection, normal range of motion Final Diagnosis/Problem List - Final Discharge Diagnosis/Problem (1) CHF (congestive heart failure) Current Visit: Yes Status: Acute (2) Influenza A Current Visit: Yes Status: Acute (3) Asthmatic bronchitis Current Visit: Yes Status: Acute - Discharge Disposition: Home, Self-Care Condition: Good Prescriptions: New Oseltamivir 75 mg [Tamiflu 75MG Capsule] 75 mg PO BID #4 cap Metformin HCl 500 mg PO BID #60 tablet Continue Aspirin [Aspirin EC] 81 mg PO DAILY Furosemide 40 mg PO BID Albuterol Sulfate [Albuterol Sulfate Hfa] 2 puff IH Q4-6HPRN PRN #1 hfa.aer.[id number] PRN Reason: Cough Prednisone 20 mg [Deltasone 20 mg] 20 mg PO UD Losartan/Hydrochlorothiazide [Losartan-Hctz 100-12.5 mg Tab] 1 tab PO DAILY Carvedilol 6.25 mg PO BID Doxycycline Monohydrate 100 mg PO BID Fluticasone/Vilanterol [Breo Ellipta 100-25 Mcg INH] 1 puff IH DAILY Naproxen Sodium 220 mg [Aleve 220 MG] 2 mg PO BID PRN PRN PRN Reason: Pain Instructions: Heart Failure Additional Instructions: resume the doxycylcline and prednisone you have at home, take tamiflu for 2 more days. use your nebulizer every 4 hours while awake and continue home oxygen. f/u with Dr Ball in 1 week Follow up with: LUCIO BALL MD [ACTIVE STAFF] - 1 Week
[2017-11-10 11:25] VITALS: BP 107/68; PULSE 82; O2SAT 90
--- NOTE | 2017-11-14 08:39 | ECHO ---
DATE OF PROCEDURE: 11/08/2017 CLINICAL INFORMATION: Congestive heart failure. The M-mode 2D, and Doppler echocardiogram including color flow Doppler shows normal contractility of the left ventricle. The ejection fraction is calculated to be between 62 and 69%. The left ventricle is normal in size with a dimension of 4.8 cm. There is moderate hypertrophy of the septal wall with a dimension of 1.8 cm. The left ventricular posterior wall is thickened at 1.6 cm. The mitral valve E to A inflow velocity ratio is decreased at 0.8 consistent with impaired left ventricular relaxation. The aortic valve opens well. The right ventricle appears to be normal in size and function. There is no apical thrombus involving the left ventricle. The left atrium is moderately dilated with a dimension of 4.9 cm. The interatrial septum is intact. The right atrium is normal. The mitral valve is normal. There is mild tricuspid regurgitation. The right ventricular systolic pressure is normal at 15 mm of Mercury. The pulmonic valve is not well visualized. The aortic root is at the upper limits of normal being 3.7 cm. There is no pericardial effusion present. IMPRESSION: 1) NORMAL CONTRACTILITY OF THE LEFT VENTRICLE. 2) MODERATE CONCENTRIC LEFT VENTRICULAR HYPERTROPHY. 3) THERE IS EVIDENCE OF IMPAIRED LEFT VENTRICULAR RELAXATION. 4) THERE IS MODERATE LEFT ATRIAL DILATATION. 5) THERE IS MILD TRICUSPID REGURGITATION WITHOUT PULMONARY HYPERTENSION.
== END 2017-11-10 13:00 | disposition home or self-care (01) | DRG 291 ==
LOC: ED 08:58 → MED SURG 15:23
PROVIDERS: ADMIT Family Medicine; ATTEND Family Medicine
DX: I50.9 Heart failure, unspecified (principal); I50.31 Acute diastolic (congestive) heart failure; J18.9 Pneumonia, unspecified organism; J96.21 Acute and chronic respiratory failure with hypoxia; E66.01 Morbid (severe) obesity due to excess calories; M10.9 Gout, unspecified; Z79.899 Other long term (current) drug therapy; J45.901 Unspecified asthma with (acute) exacerbation; I50.84 End stage heart failure; J10.1 Influenza due to other identified influenza virus with other respiratory manifestations; J20.8 Acute bronchitis due to other specified organisms; J44.9 Chronic obstructive pulmonary disease, unspecified; I10 Essential (primary) hypertension; M19.90 Unspecified osteoarthritis, unspecified site; Z86.73 Personal history of transient ischemic attack (TIA), and cerebral infarction without residual deficits; D50.9 Iron deficiency anemia, unspecified
CPT/HCPCS: 36000; 36415; 71046; 80048; 80053; 82962; 83036; 83605; 83735; 83880; 84484; 85025; 85027; 87631; 93041; 93306; 94150; 94640; 94760; 96374; 99285; J1650; J1940; J2930; A9270-GY

== ENCOUNTER 2017-11-22 14:58 | Observation (INO) | payer MEDICARE, OTHER ==
[2017-11-22] MEDS ORDERED: NovoLOG Insulin SQ PRN (15:45)
[2017-11-22] MEDS ORDERED: DUONEB 0.5-3 MG/3 ml Neb IH PRN (15:46)
[2017-11-22] MEDS ORDERED: Sodium Chloride 0.9% 500 ML 500 ML IV SCH (16:00)
[2017-11-22 16:19] LABS: BASOPHIL % 0.2 % (0.0-0.4); Basophil (Absolute #) 0.02 (0-0.4); Eosinophil % 1.1 % (0.00-5.0); Eosinophil (Absolute #) 0.14 (0-0.5); Granulocyte Absolute (ANC) 10.02 (1.4-6.9); Granulocytes % 76.3 % (36.0-66.0); Hematocrit 41.2 % (42-50); Hemoglobin 12.8 gm/dl (12.5-18.0); Lymphocyte (Absolute #) 1.83 (1.0-4.6); Mean Cell Volume 68.2 fl (78-100); Mean Corpuscular Hgb Concent. 31.1 g/dl (32-36); Mean Platelet Volume 10.2 fl (6-9.5); Monocytes % 8.4 % (0.0-12.0); Platelet Count 210 K/mm3 (150-450); Red Blood Count 6.04 M/mm3 (4.1-5.6); Red Cell Distribution Width 22.6 % (11.5-14.0); White Blood Count 13.1 K/mm3 (4.0-10.5)
[2017-11-22 16:21] LABS: Mean Corpuscular Hemoglobin 21.1 pg (26-32)
[2017-11-22 16:59] LABS: Slide Review 1 YES
[2017-11-22 17:22] LABS: ALBUMIN 3.9 g/dL (3.4-5.0); ANION GAP 15.8 MEQ/L (5-15); BILIRUBIN,TOTAL 0.5 mg/dL (0.2-1.0); Calcium 9.1 mg/dL (8.5-10.1); Carbon Dioxide 26.9 mEq/L (21-32); Creatinine 1 2.92 mg/dl (0.55-1.30); Potassium 4.7 mEq/L (3.5-5.1); TSH, 3RD Generation 1.834 mIU/L (0.358-3.740); Total Protein 7.2 gm/dL (6.4-8.2)
--- NOTE | 2017-11-22 17:25 | XRAY ---
Exam: AP semierect upright portable chest film from 11/22/2017. Comparison: Two-view chest from 11/08/2017. Indication: Dehydration, weakness, hypotension. Findings: 2 films were obtained. They both were taken in a lordotic projection. The patient has a large body habitus. The heart size appears within normal limits. No vascular congestion, pneumothorax, or pleural fluid is seen. Stable moderate elevation of the right hemidiaphragm is again seen. I note some transversely oriented linear scarring scarring or linear atelectasis adjacent to the right hemidiaphragmatic surface. The visualized right upper lung field is clear except for a thin strand of scarring lateral to the right hilum. The left lung reveals minimal streaky atelectasis or scarring at the left lung base. This appears mildly improved from 11/08/2017. The remainder the left lung appears clear. No acute osseous process is seen. Impression: 1. The chest appears hypoinflated. The patient has a large body habitus. 2. I again note moderate elevation of the right hemidiaphragm representing no change from 11/08/2017. 3. Mild bibasilar linear scarring/atelectasis is seen. I believe there has been some mild improvement at both lung bases as compared to 11/08/2017. 4. No other acute cardiopulmonary disease is seen.
[2017-11-22] MEDS: ENOXAPARIN SODIUM SQ SCH (17:45)
[2017-11-22] MEDS: Sodium Chloride 0.9% 1000 ML 1,000 ML IV SCH (17:48)
[2017-11-22] MEDS: Coreg 6.25 MG PO SCH (21:24)
[2017-11-23 06:31] LABS: Hematocrit 38.3 % (42-50); Hemoglobin 11.6 gm/dl (12.5-18.0); Mean Corpuscular Hemoglobin 21.2 pg (26-32); Mean Corpuscular Hgb Concent. 30.3 g/dl (32-36); Mean Platelet Volume 10.5 fl (6-9.5); Platelet Count 169 K/mm3 (150-450); Red Blood Count 5.47 M/mm3 (4.1-5.6); Red Cell Distribution Width 22.4 % (11.5-14.0); White Blood Count 9.5 K/mm3 (4.0-10.5)
[2017-11-23 06:52] LABS: ANION GAP 13.5 MEQ/L (5-15); Calcium 8.8 mg/dL (8.5-10.1); Creatinine 1 2.6 mg/dl (0.55-1.30); Potassium 4.5 mEq/L (3.5-5.1)
[2017-11-23] MEDS: PATIENT OWN MEDICATION IH SCH ×2 (07:40→09:53)
[2017-11-23] MEDS ORDERED: Ventolin Hfa MDI IH PRN (08:56)
[2017-11-23] MEDS ORDERED: PROVENTIL COMMON CANISTER IH PRN (08:57)
[2017-11-23 09:13] LABS: Slide Review YES
[2017-11-23] MEDS: ENOXAPARIN SODIUM SQ SCH (09:51)
[2017-11-23] MEDS: ECOTRIN 81 MG PO SCH (09:51)
[2017-11-23] MEDS: Coreg 6.25 MG PO SCH ×2 (09:51→21:13)
[2017-11-23] MEDS: Sodium Chloride 0.9% 1000 ML 1,000 ML IV SCH ×2 (12:13→16:49)
[2017-11-23] MEDS ORDERED: Sodium Chloride 0.9% 1000 ML 1,000 ML IV STA (13:54)
--- NOTE | 2017-11-23 14:00 | PCM.NOTE ---
Date and Time: 11/23/17 1235 Subjective Assessment: Pt admitted by Dr. Conn yesterday from office with hypotension and dehydration. Found to have acute renal insufficiency. Pt was on diuretic at baseline then had diarrhea. Pt thinks his BP had been running low at home as he was having some orthostatic symptoms. In the office his BP was 70 systolic. It has come up over the last 24 hours from 90s systolic up to 120s systolic. He is tolerating po well and no more diarrhea. - Review of Systems Constitutional: No Fever Abdominal/Gastrointestinal: No Diarrhea Objective Exam General Appearance: no apparent distress, obese Neurologic Exam: alert, oriented x 3, cooperative Skin Exam: normal color, warm, dry, No rash Ears, Nose, Throat Exam: moist mucous membranes Respiratory Exam: normal breath sounds, lungs clear, No crackles/rales, No rhonchi, No wheezing Cardiovascular Exam: regular rate/rhythm, normal heart sounds, No murmur Extremity Exam: normal inspection OBJECTIVE DATA Vital Signs: Vital Signs - 24 hr Temp Pulse Resp BP Pulse Ox 11/23/17 12:00 98.2 F 95 H 20 121/70 97 11/23/17 10:59 96 11/23/17 10:03 127/68 11/23/17 08:00 97.8 F 74 20 106/66 98 11/23/17 04:00 97.7 F 70 22 107/65 97 11/23/17 00:36 71 22 88 L 11/23/17 00:27 98.6 F 75 22 90/55 94 L 11/22/17 20:00 98.6 F 84 24 95/64 95 11/22/17 17:29 78 20 98 11/22/17 16:47 98.6 F 83 24 90/51 96 11/22/17 16:00 98.6 F 83 24 90/51 96 Oxygen-Last 24 hours O2 Percentage 2 Liters = 28% O2 Percentage 2 Liters = 28% Pain Assessment - Last Documented Pain Intensity 0 Pain Scale Used 0-10 Pain Scale Intake and Output: Intake & Output 11/21/17 11/22/17 11/23/17 11/24/17 11:59 11:59 11:59 11:59 Intake Total 2603 480 Balance 2603 480 Weight 143.7 kg Lab Results: Accuchecks Date 11/23/17 Date 11/23/17 Date 11/22/17 Time 12:52 Time 09:55 Time 22:00 Accucheck Value: 195 Accucheck Value: 100 Accucheck Value: 107 Lab Results-Last 24 Hours 11/22/17 11/22/17 11/23/17 Range/Units 16:05 16:05 05:12 WBC 13.1 H 9.5 (4.0-10.5) K/mm3 RBC 6.04 H 5.47 (4.1-5.6) M/mm3 Hgb 12.8 11.6 L (12.5-18.0) gm/dl Hct 41.2 L 38.3 L (42-50) % MCV 68.2 L 70.0 L (78-100) fl MCH 21.1 L 21.2 L (26-32) pg MCHC 31.1 L 30.3 L (32-36) g/dl RDW 22.6 H 22.4 H (11.5-14.0) % Plt Count 210 169 (150-450) K/mm3 MPV 10.2 H 10.5 H (6-9.5) fl Gran % 76.3 H (36.0-66.0) % Lymphocytes % 14.0 L (24.0-44.0) % Monocytes % 8.4 (0.0-12.0) % Eosinophils % 1.1 (0.00-5.0) % Basophils % 0.2 (0.0-0.4) % Basophils # 0.02 (0-0.4) Sodium 130 L (136-145) mEq/L Potassium 4.7 (3.5-5.1) mEq/L Chloride 92 L (98-107) mEq/L Carbon Dioxide 26.9 (21-32) mEq/L Anion Gap 15.8 H (5-15) MEQ/L BUN 50 H (9-20) mg/dL Creatinine 2.92 H (0.55-1.30) mg/dl Estimated GFR 23 ML/MIN Glucose (70-110) MG/DL Calcium 9.1 (8.5-10.1) mg/dL Total Bilirubin 0.50 (0.2-1.0) mg/dL AST 23 (15-37) U/L ALT 40 (12-78) U/L Alkaline Phosphatase 49 (46-116) U/L Serum Total Protein 7.2 (6.4-8.2) gm/dL Albumin 3.9 (3.4-5.0) g/dL TSH 3rd Generation 1.834 (0.358-3.740) mIU/L Slides for Path Review YES YES 11/23/17 Range/Units 05:12 WBC (4.0-10.5) K/mm3 RBC (4.1-5.6) M/mm3 Hgb (12.5-18.0) gm/dl Hct (42-50) % MCV (78-100) fl MCH (26-32) pg MCHC (32-36) g/dl RDW (11.5-14.0) % Plt Count (150-450) K/mm3 MPV (6-9.5) fl Gran % (36.0-66.0) % Lymphocytes % (24.0-44.0) % Monocytes % (0.0-12.0) % Eosinophils % (0.00-5.0) % Basophils % (0.0-0.4) % Basophils # (0-0.4) Sodium 132 L (136-145) mEq/L Potassium 4.5 (3.5-5.1) mEq/L Chloride 94 L (98-107) mEq/L Carbon Dioxide 29.0 (21-32) mEq/L Anion Gap 13.5 (5-15) MEQ/L BUN 47 H (9-20) mg/dL Creatinine 2.60 H (0.55-1.30) mg/dl Estimated GFR 26 ML/MIN Glucose 98 (70-110) MG/DL Calcium 8.8 (8.5-10.1) mg/dL Total Bilirubin (0.2-1.0) mg/dL AST (15-37) U/L ALT (12-78) U/L Alkaline Phosphatase (46-116) U/L Serum Total Protein (6.4-8.2) gm/dL Albumin (3.4-5.0) g/dL TSH 3rd Generation (0.358-3.740) mIU/L Slides for Path Review Radiology Exams: Radiology Procedures Category Date Time Status CHEST 1 VIEW (PORTABLE) Routine Exams 11/22/17 16:00 Completed Assessment/Plan (1) Acute renal failure Current Visit: Yes Status: Acute Qualifiers: Acute renal failure type: unspecified Qualified Code(s): N17.9 - Acute kidney failure, unspecified Assessment & Plan: prerenal due to dehydration. Have been quite careful in hydrating him thus far with minimal improvement in renal function. Will give a few more boluses today and increase his baseline fluid from 50 to 100 cc/hr. Will watch carefully for signs of heart failure. (2) Dehydration Current Visit: Yes Status: Acute Assessment & Plan: some improvement, but needs another day of fluid (at least - recheck labs in a.m.). Code(s): E86.0 - DEHYDRATION (3) Hypotension Current Visit: Yes Status: Resolved Qualifiers: Hypotension type: unspecified hypotension type Qualified Code(s): I95.9 - Hypotension, unspecified Code(s): I95.9 - HYPOTENSION, UNSPECIFIED (4) CHF (congestive heart failure) Current Visit: No Status: Chronic Code(s): I50.9 - HEART FAILURE, UNSPECIFIED (5) COPD (chronic obstructive pulmonary disease) Current Visit: No Status: Chronic (6) Diabetes mellitus Current Visit: No Status: Chronic Qualifiers: Diabetes mellitus type: type 2 Assessment & Plan: BS 107-195 here. I have held his metformin due to renal function. Code(s): E11.9 - TYPE 2 DIABETES MELLITUS WITHOUT COMPLICATIONS
[2017-11-23] MEDS ORDERED: xanAX 0.5 MG PO PRN (14:01)
[2017-11-24] MEDS: Sodium Chloride 0.9% 1000 ML 1,000 ML IV SCH (03:14)
[2017-11-24 05:53] LABS: BASOPHIL % 0.2 % (0.0-0.4); Basophil (Absolute #) 0.01 (0-0.4); Eosinophil % 2.7 % (0.00-5.0); Eosinophil (Absolute #) 0.14 (0-0.5); Granulocyte Absolute (ANC) 3.06 (1.4-6.9); Granulocytes % 58.7 % (36.0-66.0); Hematocrit 35.2 % (42-50); Hemoglobin 10.6 gm/dl (12.5-18.0); Lymphocyte (Absolute #) 1.32 (1.0-4.6); Lymphocytes % 25.3 % (24.0-44.0); Mean Cell Volume 71.4 fl (78-100); Mean Corpuscular Hemoglobin 21.5 pg (26-32); Mean Corpuscular Hgb Concent. 30.1 g/dl (32-36); Mean Platelet Volume 10.1 fl (6-9.5); Monocyte (Absolute #) 0.68 (0.0-1.3); Monocytes % 13.1 % (0.0-12.0); Platelet Count 132 K/mm3 (150-450); Red Blood Count 4.93 M/mm3 (4.1-5.6); Red Cell Distribution Width 22.1 % (11.5-14.0); White Blood Count 5.2 K/mm3 (4.0-10.5)
[2017-11-24 06:19] LABS: ANION GAP 11.1 MEQ/L (5-15); Calcium 8.3 mg/dL (8.5-10.1); Carbon Dioxide 29.4 mEq/L (21-32); Creatinine 1 1.55 mg/dl (0.55-1.30); Potassium 4.5 mEq/L (3.5-5.1)
[2017-11-24 08:31] LABS: Slide Review 1 YES
[2017-11-24] MEDS ORDERED: Sodium Chloride 0.9% 1000 ML 1,000 ML IV STA (09:31)
[2017-11-24] MEDS: Coreg 6.25 MG PO SCH (09:37)
[2017-11-24] MEDS: ENOXAPARIN SODIUM SQ SCH (09:37)
[2017-11-24] MEDS: ECOTRIN 81 MG PO SCH (09:37)
[2017-11-24] MEDS: PATIENT OWN MEDICATION IH SCH (09:39)
[2017-11-24] MEDS ORDERED: Colace 100 MG PO PRN (11:47)
[2017-11-24 13:26] VITALS: BP 147/78; PULSE 78; O2SAT 95
--- NOTE | 2017-11-24 13:33 | PCM.DS ---
Discharge Summary Date of Admission: 11/22/17 15:41 Admitting Physician: LUCIO BALL Primary Care Provider: MARYELLEN HODGES Allergies Allergies Penicillins Allergy (Verified 10/19/16 16:42) Hospital Summary - Hospital Course Hospital Course: Pt admitted through office by Dr. Ball with hypotension and weakness. Found to have acute (on chronic) renal failure and given IV fluids. Yesterday there was minimal improvement, with eGFR 2.60 (improved from 2.92 initially). Today the eGFR is 1.55 (in Oct 2016 was 1.4). He has had no complaints through his stay (aside from weakness) until he complained of R sided throat pain today. His exam is benign. He will be discharged to home after 1 more liter of fluid and should get a BMP next week before following up with Dr. Ball. - Vitals & Intake/Output Vital Signs: Vital Signs Temperature 98.4 F 11/24/17 08:00 Pulse Rate 70 11/24/17 08:00 Respiratory Rate 20 11/24/17 08:00 Blood Pressure 126/61 11/24/17 08:00 O2 Sat by Pulse Oximetry 97 11/24/17 08:00 Oxygen-Last Documented O2 Percentage 2 Liters = 28% Intake & Output: Intake & Output 11/22/17 11/23/17 11/24/17 11/25/17 11:59 11:59 11:59 11:59 Intake Total 2603 5221 Balance 2603 5221 Weight 143.7 kg - Lab Result Diagrams: 11/24/17 05:06 11/24/17 05:06 Lab Results-Last 24 Hrs: Accuchecks Date 11/23/17 Date 11/23/17 Time 22:00 Time 16:55 Accucheck Value: 97 Accucheck Value: 96 Accucheck Value: 116 Accucheck Value: 117 Lab Results-Last 24 Hours 11/24/17 11/24/17 Range/Units 05:06 05:06 WBC 5.2 (4.0-10.5) K/mm3 RBC 4.93 (4.1-5.6) M/mm3 Hgb 10.6 L (12.5-18.0) gm/dl Hct 35.2 L (42-50) % MCV 71.4 L (78-100) fl MCH 21.5 L (26-32) pg MCHC 30.1 L (32-36) g/dl RDW 22.1 H (11.5-14.0) % Plt Count 132 L (150-450) K/mm3 MPV 10.1 H (6-9.5) fl Gran % 58.7 (36.0-66.0) % Lymphocytes % 25.3 (24.0-44.0) % Monocytes % 13.1 H (0.0-12.0) % Eosinophils % 2.7 (0.00-5.0) % Basophils % 0.2 (0.0-0.4) % Basophils # 0.01 (0-0.4) Sodium 138 (136-145) mEq/L Potassium 4.5 (3.5-5.1) mEq/L Chloride 102 (98-107) mEq/L Carbon Dioxide 29.4 (21-32) mEq/L Anion Gap 11.1 (5-15) MEQ/L BUN 26 H (9-20) mg/dL Creatinine 1.55 H (0.55-1.30) mg/dl Estimated GFR 47 ML/MIN Glucose 100 (70-110) MG/DL Calcium 8.3 L (8.5-10.1) mg/dL Slides for Path Review YES Micro Results-Entire Visit: Accuchecks Date 11/23/17 Date 11/23/17 Time 22:00 Time 16:55 Accucheck Value: 97 Accucheck Value: 96 Accucheck Value: 116 Accucheck Value: 117 - Radiology Exams Ordered Rad Exams-Entire Visit: Radiology Procedures Category Date Time Status CHEST 1 VIEW (PORTABLE) Routine Exams 11/22/17 16:00 Completed - Procedures and Test Procedures and Tests throughout Hospitalization: Therapy Orders & Screens 11/22/17 16:00 Respiratory Nebulizer UD Comment: Diagnosis: dehydration,weakness,hypotension Name of medication?: duonebs 2.5/0.5 INH every 6 hrs prn 11/22/17 17:33 RT Screen per Nursing Assess ONCE Comment: Protocol Order Physician Instructions: Greater than 3 points order RT Admission Screen Reason For Exam: Triggered on Admission Diagnosis: dehydration,weakness,hypotension Diagnosis: dehydration,weakness,hypotension Pneumonia: No Home O2: Yes Asthma: No CHF: No Home Nebs/MDI: Yes Total Points: 10 11/23/17 07:00 Respiratory MDI UD Comment: BREO DAILY Diagnosis: dehydration,weakness,hypotension Final Diagnosis/Problem List - Final Discharge Diagnosis/Problem (1) Acute renal failure Current Visit: Yes Status: Acute Assessment & Plan: Much improved, nearly back to baseline. Home today and recheck this later in the week. (2) Dehydration Current Visit: Yes Status: Resolved (3) Hypotension Current Visit: Yes Status: Resolved Assessment & Plan: He thinks he was having some hypotension prior to the diarrhea and dehydration. Will decrease his lasix (to 20mg/d for the next 2d, then increase to BID). Will hold his losartan/HCTZ (bp here on just carvedilol are 106-127 systolic, 66 -79 diastolic) - if his systolic BP gets over 130 systolic at home, would restart the losartan/HCTZ at 1/2 pill daily. F/.u with Dr. Ball this next week. (4) CHF (congestive heart failure) Current Visit: No Status: Chronic (5) COPD (chronic obstructive pulmonary disease) Current Visit: No Status: Chronic (6) Diabetes mellitus Current Visit: No Status: Chronic - Discharge Disposition: Home, Self-Care Condition: Good Prescriptions: New Docusate Sodium 100 mg [Colace 100 MG] 100 mg PO BIDPRN PRN capsule PRN Reason: Constipation Furosemide 20 mg [Lasix 20 mg] 20 mg PO DAILY #30 tablet Continue Aspirin [Aspirin EC] 81 mg PO DAILY Furosemide 40 mg PO BID Albuterol Sulfate [Albuterol Sulfate Hfa] 2 puff IH Q4-6HPRN PRN #1 hfa.aer.ad PRN Reason: Cough Losartan/Hydrochlorothiazide [Losartan-Hctz 100-12.5 mg Tab] 1 tab PO DAILY Carvedilol 6.25 mg PO BID Fluticasone/Vilanterol [Breo Ellipta 100-25 Mcg INH] 1 puff IH DAILY Naproxen Sodium 220 mg [Aleve 220 MG] 2 mg PO BID PRN PRN PRN Reason: Pain Metformin HCl 500 mg PO BID #60 tablet Instructions: Dehydration, Adult (DC), Low Blood Pressure Additional Instructions: Decrease your lasix to 20mg daily for the next 1-2 days, then increase to 20mg twice a day. If you feel short of breath or have lower extremity swelling, resume the 40mg twice a day dose and let Dr. Ball' office know. You are taking your carvedilol; continue this. Hold the losartan/HCTZ - if the top # on BP gets over 130, restart the losartan/ HCTZ at 1/2 pill daily. F/.u with Dr. Ball this next week. Follow up with: MARYELLEN HODGES [Primary Care Provider] - Call for Appointment Forms: Discharge Instructions
== END 2017-11-24 14:45 | disposition home or self-care (01) ==
LOC: MED SURG 15:41
PROVIDERS: ADMIT Family Medicine; ATTEND Family Medicine
DX: N17.9 Acute kidney failure, unspecified (principal); E86.0 Dehydration; I95.9 Hypotension, unspecified; I50.9 Heart failure, unspecified; J44.9 Chronic obstructive pulmonary disease, unspecified; E11.9 Type 2 diabetes mellitus without complications; Z72.0 Tobacco use
CPT/HCPCS: 36415; 71045; 80048; 80053; 82962; 84443; 85025; 85027; 94640; 94760; G0378; J1650; A9270-GY